=== PATIENT | male | born 1995 | race Caucasian/White ===

== ENCOUNTER → 2017-06-17 | Outpatient (CLI) | payer BC ==
[~2017-06-17] MED LIST: CODACEE120 PO; DOXY100 PO; IBUP600 PO
== END ==
LOC: PLD 09:50 → LAB SHORT 09:50
DX: D22.5 Melanocytic nevi of trunk (principal)
CPT/HCPCS: 88305

== ENCOUNTER → 2020-04-09 | Outpatient (CLI) | payer OTHER | END | disposition home or self-care (01) | LOC: LAB SHORT 12:29 → LAB 12:29 | DX: D22.5 Melanocytic nevi of trunk (principal) | CPT/HCPCS: 88305 ==